=== PATIENT | female | born 1965 | race American Indian/Alaskan Native ===

== ENCOUNTER 2021-02-18 10:30 | Emergency (ER) | payer SELFPAY ==
[2021-02-18 10:56] VITALS: BP 190/57
[2021-02-18] MEDS ORDERED: SODIUM CHLORIDE 0.9% 1000 ML 1,000 ML IV ONE (13:06)
[2021-02-18] MEDS ORDERED: ONDANSETRON 4 MG/2 ML INJ IV ONE (13:06)
[2021-02-18] MEDS ORDERED: MORPHINE 4 MG/1 ML INJ IV ONE (13:06)
--- NOTE | 2021-02-18 13:08 | Emergency Department Report ---
ED Abdominal Pain HPI - General Chief Complaint: Abdominal Pain Stated Complaint: STOMACH PAIN Time Seen by Provider: 02/18/21 12:47 Source: patient Mode of arrival: Ambulatory Limitations: No Limitations - History of Present Illness Initial Comments: 56-year-old female with a past medical history of hypertension and diabetes presents to the ER today with complaints of abdominal pain. Patient states that her symptoms started about 2 days ago and is been getting worse. She reports periumbilical pain which she describes as contractions and she states that has been intermittent in nature and nonradiating. She denies any nausea or vomiting. She states that she has had a couple changes with a bowel movement, she states that when the pain first started she noticed that her stool was really soft, then he became watery like diarrhea but since Wednesday she has not had a bowel movement. She also reports that she has not urinated since Wednesday. She states that she has not been wanting to eat or drink that she notices that when she do eat or drink as when the pain worsens. She denies any fever at home. She denies any apparent ill contacts. She is status post cholecystectomy and status post appendectomy. She denies any UTI or any abnormal vaginal symptoms. She states that she drink socially, and she denies any illicit drug use. MD Complaint: abdominal pain -: days(s) (2) - Related Data Previous Rx's Medication Instructions Recorded Last Taken Type Hyoscyamine Subl [Levsin Sl 0.125 0.125 mg SL Q6HR PRN #20 tab 02/18/21 Unknown Rx TAB] Allergies Allergy/AdvReac Type Severity Reaction Status Date / Time No Known Allergies Allergy Unverified 02/18/21 10:56 ED Review of Systems ROS: Stated complaint: STOMACH PAIN Other details as noted in HPI Comment: All other systems reviewed and negative Constitutional: denies: chills, fever Eyes: denies: eye pain, eye discharge, vision change ENT: denies: ear pain, throat pain Respiratory: denies: cough, shortness of breath, wheezing Cardiovascular: denies: chest pain, palpitations Gastrointestinal: abdominal pain, diarrhea, constipation. denies: nausea, vomiting, hematochezia Genitourinary: other (Decreased urine output). denies: urgency, dysuria, frequency, hematuria, discharge, abnormal menses, dyspareunia Musculoskeletal: as per HPI. denies: joint swelling, arthralgia, myalgia Skin: denies: rash, lesions, change in color, change in hair/nails, pruritus Neurological: denies: headache, weakness, numbness, paresthesias, confusion, abnormal gait, vertigo ED Past Medical Hx - Medications Home Medications: Home Medications Medication Instructions Recorded Confirmed Last Taken Type Hyoscyamine Subl [Levsin Sl 0.125 0.125 mg SL Q6HR PRN #20 tab 02/18/21 Unknown Rx TAB] ED Physical Exam - General Limitations: No Limitations General appearance: alert, in distress (Mild secondary to pain) - Head Head exam: Present: atraumatic, normocephalic, normal inspection - Eye Eye exam: Present: normal appearance, PERRL, EOMI Pupils: Present: normal accommodation - Neck Neck exam: Present: normal inspection, full ROM - Respiratory Respiratory exam: Present: normal lung sounds bilaterally. Absent: respiratory distress, wheezes, rales, rhonchi - Cardiovascular Cardiovascular Exam: Present: regular rate, normal rhythm, normal heart sounds - GI/Abdominal GI/Abdominal exam: Present: soft, tenderness (Moderate tenderness palpation around umbilicus with some guarding. No rebound or rigidity.). Absent: distended, rebound, rigid - Neurological Exam Neurological exam: Present: alert, oriented X3, CN II-XII intact, normal gait - Psychiatric Psychiatric exam: Present: normal affect, normal mood - Skin Skin exam: Present: intact ED Course Vital Signs 02/18/21 10:48 Temperature 98.8 F Pulse Rate 54 L Respiratory 16 Rate Blood Pressure 190/57 O2 Sat by Pulse 96 Oximetry ED Medical Decision Making - Lab Data Result diagrams: 02/18/21 13:50 02/18/21 13:50 - Radiology Data Radiology results: report reviewed Patient: KARON JETT MR#: [id number] 03 : 1965 Acct:[id number] Age/Sex: 56 / F ADM Date: 02/18/21 Loc: ED Attending Dr: Ordering Physician: ISABELLE DOCKERY Date of Service: 02/18/21 Procedure(s): CT abdomen pelvis w con Accession Number(s): [id number] cc: ISABELLE DOCKERY CT ABDOMEN AND PELVIS WITH CONTRAST HISTORY: periumbilical Abdominal Pain 100 ml omni 300 . COMPARISON: None. TECHNIQUE: CT images of the abdomen and pelvis were obtained following administration of intravenous contrast. All CT scans at this location are performed using CT dose reduction for ALARA by means of automated exposure control. CONTRAST: 100 ml of intravenous contrast administered. FINDINGS: Lungs/bones: There is minimal basilar atelectasis on the lungs. No consolidation or effusion. Degenerative changes are present in the spine and pelvis with no acute osseous abnormality. Abdomen/pelvis: Gallbladder is surgically absent. The liver, spleen, pancreas, adrenals, kidneys, and proximal GI tract appear unremarkable. Urinary bladder and reproductive organs are unremarkable with no pelvic free fluid or acute colonic abnormality. The appendix is normal. IMPRESSION: 1. No acute abnormality identified. Signer Name: Santy Gifford MD Signed: 02/18/2021 4:05 PM Workstation Name: [id number] Transcribed By: GLORY Dictated By: Santy Gifford MD Electronically Authenticated By: Santy Gifford MD Signed Date/Time: 02/18/21 160 DD/ 160 TD/TT: Critical care attestation.: If time is entered above; I have spent that time in minutes in the direct care of this critically ill patient, excluding procedure time. ED Disposition Clinical Impression: Abdominal pain Disposition: 01 HOME / SELF CARE / HOMELESS Is pt being admited?: No Does the pt Need Aspirin: No Condition: Stable Instructions: Abdominal Pain, Adult, [id number], Abdominal Pain (ED) Additional Instructions: I recommend that you take the Levsin as prescribed to help with your abdominal pain if he continues. Your CT scan today does not show any acute abnormality requiring admission or any emergent surgical consult. The exact cause of your pain at this time unclear. I do recommend following up closely with your PCP for reevaluation and repeat abdominal exam if your symptoms continues, but if at any point your symptoms worsen return immediately to the ER. Prescriptions: Hyoscyamine Subl [Levsin Sl 0.125 TAB] 0.125 mg SL Q6HR PRN #20 tab PRN Reason: Abdominal cramps Referrals: JAMES PARRISH MD [Staff Physician] - 3-5 Days Forms: Work/School Release Form(ED) Time of Disposition: 16:48
[2021-02-18 14:14] LABS: Basophils % (Auto) 0.6 % (0.0-1.8); Eosinophils # (Auto) 0.1 K/mm3 (0.0-0.4); Eosinophils % (Auto) 2.1 % (0.0-4.3); Hematocrit 39.7 % (30.3-42.9); Hemoglobin 12.5 gm/dl (10.1-14.3); Lymphocytes # (Auto) 2.6 K/mm3 (1.2-5.4); Lymphocytes % (Auto) 51.7 % (13.4-35.0); Mean Corpuscular HGB Conc 32 % (30-34); Mean Corpuscular Volume 79 fl (79-97); Monocytes # (Auto) 0.4 K/mm3 (0.0-0.8); Monocytes % (Auto) 8.8 % (0.0-7.3); Platelet Count 256 K/mm3 (140-440); Red Blood Count 5.04 M/mm3 (3.65-5.03); Red Cell Distribution Width 15.2 % (13.2-15.2)
[2021-02-18 14:29] LABS: Alanine Aminotransferase 56 units/L (7-56); Blood Urea Nitrogen 11 mg/dL (7-17); Calcium 8.9 mg/dL (8.4-10.2); Hemolysis Index 9
[2021-02-18 14:32] LABS: BUN/Creatinine Ratio 22; Bilirubin,Direct < 0.2 mg/dL (0-0.2)
[2021-02-18 15:56] LABS: Bilirubin,Urine NEG (Negative); Blood,Urine NEG (Negative); Color,Urine Colorless (Yellow); Protein,Urine <15 mg/dL mg/dL (Negative); RBC,Urine < 1.0 /HPF (0.0-6.0); Urobilinogen,Urine < 2.0 mg/dL (<2.0); WBC,Urine < 1.0 /HPF (0.0-6.0)
--- NOTE | 2021-02-18 16:09 | Cat Scan Report ---
CT ABDOMEN AND PELVIS WITH CONTRAST HISTORY: periumbilical Abdominal Pain 100 ml omni 300 . COMPARISON: None. TECHNIQUE: CT images of the abdomen and pelvis were obtained following administration of intravenous contrast. All CT scans at this location are performed using CT dose reduction for ALARA by means of automated exposure control. CONTRAST: 100 ml of intravenous contrast administered. FINDINGS: Lungs/bones: There is minimal basilar atelectasis on the lungs. No consolidation or effusion. Degene rative changes are present in the spine and pelvis with no acute osseous abnormality. Abdomen/pelvis: Gallbladder is surgically absent. The liver, spleen, pancreas, adrenals, kidneys, an d proximal GI tract appear unremarkable. Urinary bladder and reproductive organs are unremarkable with no pelvic free fluid or acute colonic a bnormality. The appendix is normal. IMPRESSION: 1. No acute abnormality identified. Signer Name: Santy Gifford MD Signed: 02/18/2021 4:05 PM Workstation Name: [id number]
== END 2021-02-18 17:26 | disposition home or self-care (01) ==
LOC: ED 10:30
DX: R10.33 Periumbilical pain (principal)
CPT/HCPCS: 36415; 74177; 80048; 80076; 81001; 83690; 84703; 85025; 96361; 96374; 96375; 99284; J2270; J2405; J7030; Q9967; Q0162